=== PATIENT | female | born 1960 | race Asian ===

== ENCOUNTER 2022-11-02 16:59 | Emergency (ER) | payer OTHER ==
[~2022-11-02] VITALS: Ht 167.6 cm; Wt 73.9 kg
[~2022-11-02 16:59] MED LIST: ACET-206 PO; CHOL100034 PO; FOLI1TAB26 PO; OLAN10INJ INJ; OLAN2.5T2 PO
[2022-11-02 17:02] VITALS: BP 217/74; TEMP 98.5
[2022-11-02] MEDS ORDERED: FOLI1TAB26 PO (19:49)
[2022-11-02] MEDS ORDERED: VITAMIN D325 MCG PO (19:51)
[2022-11-02] MEDS ORDERED: OLAN2.5T2 PO (19:52)
[2022-11-02] MEDS ORDERED: TYLENOL325 MG PO (19:54)
[2022-11-02] MEDS ORDERED: OLAN10INJ IM (19:57)
[2022-11-02 21:06] LABS: PLATELET COUNT 235 K/uL (152-353)
[2022-11-02 21:15] LABS: POTASSIUM 4.1 mmol/L (3.6-5.2)
[2022-11-17] MEDS ORDERED: OLANZAPINE5 MG PO (09:54)
[2022-11-17] MEDS ORDERED: OLAN10INJ IM (09:55)
== END 2022-11-02 17:26 | disposition still patient (30) ==
LOC: ED 16:59
PROVIDERS: Family Medicine
DX: R45.6 Violent behavior (principal); Z02.79 Encounter for issue of other medical certificate
CPT/HCPCS: 80053; 85027; 87635; 99283; U0003